=== PATIENT | female | born 1985 | race Caucasian/White ===

== ENCOUNTER → 2023-03-07 14:04 | Outpatient (CLI) | payer OTHER, SELFPAY ==
--- NOTE | 2023-03-07 14:18 | XR_ITS ---
FINAL REPORT CLINICAL HISTORY: LBP COMPARISON: None FINDINGS: 5 views of the lumbar spine were obtained. There is no evidence of fracture or dislocation. The vertebral alignment is normal. Disc spaces are preserved. There is mild facet osteoarthropathy in the lower lumbar spine. No paraspinous soft tissue abnormalities identified. IMPRESSION: No acute bony abnormality. Mild facet osteoarthropathy in the lower lumbar spine. Reviewed, Interpreted and Dictated by Jun Leroy III, MD Transcribed by Esthela Winters Authenticated and . [facility]
== END ==
LOC: RAD 14:12
PROVIDERS: PCP Family Medicine; Visit Provider Family Medicine
DX: M54.50 Low back pain, unspecified (principal)
CPT/HCPCS: 72110